=== PATIENT | female | born 1965 | race Native Hawaiian/Other Pacific Islander ===

== ENCOUNTER → 2016-09-11 | Outpatient (CLI) | payer BC ==
[~2016-09-11] MED LIST: AMLO5TAB2 PO; HCT25T PO
--- NOTE | 2016-09-11 13:31 | Diagnostic Imaging Report ---
PROCEDURE: CT head without contrast. TECHNIQUE: Multiple contiguous axial images were obtained through the brain without the use of intravenous contrast. INDICATION: Cephalgia. Headache. FINDINGS: There is no intracranial hemorrhage, edema or mass effect. Olivares-white matter differentiation is preserved. There is no hydrocephalus. No extra-axial fluid collection is seen. There is a nonspecific hypodensity measuring 7 mm seen in the left basal ganglia which could be related to an age-indeterminate lacunar infarct or incidental finding of Virchow-Jens space. The calvarium and visualized portions of the paranasal sinuses and orbits appear unremarkable. IMPRESSION: A 7 mm hypodensity in the left basal ganglia could relate to a lacunar infarct or prominent perivascular Virchow-Jens space. Dictated by: Dictated on workstation # [id number]
--- NOTE | 2016-09-11 14:19 | Diagnostic Imaging Report ---
PROCEDURE: CT chest without contrast. TECHNIQUE: Multiple contiguous axial images were obtained through the chest without the use of intravenous contrast. INDICATION: Followup of anterior mediastinal mass. COMPARISON: 12/29/2013. FINDINGS: The anterior mediastinal mass is again identified. This again measures approximately 19 x 18 mm. No new masses have developed. No mediastinal or hilar adenopathy is demonstrated. The lungs are well aerated and free of infiltrates or mass. No pleural effusions or pericardial effusions. There are noted gallstones within the gallbladder. IMPRESSION: 1. Stable anterior mediastinal mass measuring just under 2 cm. No new lesions have developed. 2. Cholelithiasis. Dictated by: Dictated on workstation # [id number]
--- NOTE | 2016-09-12 08:56 | Diagnostic Imaging Report ---
Bilateral screening mammogram The current study was also evaluated with a Computer Aided Detection (CAD) system. Indication: Screening. No current complaints stated on the questionnaire. COMPARISON: None available. The patient reportedly had a mammogram performed 5 years ago in [place], but the patient does not remember where. FINDINGS: The breasts are composed of scattered fibroglandular densities. There are occasional benign-appearing calcifications. Allowing for technique and positional differences, no suspicious change is seen. IMPRESSION: No significant change. ACR BI-RADS Category 2: Benign findings. Result letter will be mailed to the patient. Note: At least 10% of breast cancer is not imaged by mammography. Dictated by: Dictated on workstation # [id number]
== END ==
LOC: RAD 12:19
PROVIDERS: ATTEND Family Medicine
DX: Z12.31 Encounter for screening mammogram for malignant neoplasm of breast (principal); J98.59 Other diseases of mediastinum, not elsewhere classified; K80.20 Calculus of gallbladder without cholecystitis without obstruction; R93.0 Abnormal findings on diagnostic imaging of skull and head, not elsewhere classified; R51 Headache
CPT/HCPCS: 70450; 71250; 77067

== ENCOUNTER → 2016-09-17 | Outpatient (CLI) | payer BC ==
--- NOTE | 2016-09-17 10:00 | Diagnostic Imaging Report ---
Clinical indication: Patient with severe headache. Comparison: Ultrasound of the carotid arteries dated 10/08/2012. Exam: Real-time carotid Doppler duplex imaging is performed bilaterally. Peak systolic velocity, ICA/CCA peak systolic ratio, spectral analysis, and vascular morphology are studied. Findings: ARTERY VELOCITY Right Left CCA 0.52 m/s 0.73 m/s ICA 0.65 m/s 0.69 m/s ECA 0.54 m/s 0.50 m/s ICA/CCA 1.3 0.9 VERT.ART Antegrade Antegrade There is minimal atherosclerotic plaque seen bilaterally. Impression: Minimal bilateral carotid artery atherosclerotic disease with no grayscale or Doppler evidence of significant vascular stenosis. Dictated by: Dictated on workstation # [id number]
== END ==
LOC: RAD 09:06
PROVIDERS: ATTEND Family Medicine
DX: R51 Headache (principal); Z86.73 Personal history of transient ischemic attack (TIA), and cerebral infarction without residual deficits
CPT/HCPCS: 93880

== ENCOUNTER → 2016-10-26 | Outpatient (CLI) | payer BC ==
[~2016-10-26] MED LIST changes: +PANT40TA2 PO
== END ==
LOC: PREOP 05:33
PROVIDERS: ATTEND Surgery
DX: Z01.818 Encounter for other preprocedural examination (principal); Z12.11 Encounter for screening for malignant neoplasm of colon; R10.13 Epigastric pain; K21.9 Gastro-esophageal reflux disease without esophagitis

== ENCOUNTER 2016-10-29 11:19 | Day surgery (SDC) | payer BC ==
[~2016-10-29] VITALS: Ht 162.6 cm; Wt 84.4 kg
[~2016-10-29 11:19] MED LIST changes: -PANT40TA2 PO
[2016-10-29] MEDS ORDERED: NS IV 500 ML 500 ML IV PRN (11:30)
[2016-10-29] MEDS ORDERED: NS IV 500 ML 500 ML ONE (11:32)
[2016-10-29 11:40] VITALS: BP 148/93
[2016-10-29] MEDS ORDERED: HURRICAINE EXT TUBE (BENZOCAINE) XX ONE ×2 (12:00→15:00)
[2016-10-29] MEDS ORDERED: MIDAZOLAM 2 MG/2 ML (VERSED) VIAL ONE ×4 (13:12→13:13)
[2016-10-29] MEDS ORDERED: fentaNYL INJECTION 100 MCG/2 ML AMP ONE ×2 (13:12)
[2016-10-29] MEDS ORDERED: HURRICAINE EXT TUBE (BENZOCAINE) ONE (13:13)
[2016-10-29] MEDS: fentaNYL INJECTION 100 MCG/2 ML AMP IVP PRN ×2 (13:25→13:27)
[2016-10-29] MEDS: MIDAZOLAM 2 MG/2 ML (VERSED) VIAL IVP PRN ×2 (13:26→13:30)
--- NOTE | 2016-10-29 13:27 | History & Physicial ---
History of Present Illness History of Present Illness Reason for visit/HPI to undergo an upper endoscopy regarding symptoms of reflux disease and for screening colonoscopy concomitantly. Date of Admission Date Seen by Provider: Oct 29, 2016 Time Seen by Provider: 13:26 I consulted on this patient on 10/29/16 13:22 Attending Physician Dany Simon MD Admitting Physician Mitra Ralph DO Consult Allergies and Home Medications Allergies Coded Allergies: No Known Drug Allergies (Unverified , 11/19/12) Home Medications Amlodipine Besylate 5 Mg Tablet, 5 MG PO DAILY, (Reported) Hydrochlorothiazide 25 Mg Tab, 25 MG PO DAILY, (Reported) Past Imladjd-Hyluce-Hbgbmk Hx Patient Social History Marrital Status: Employed/Student: student, full-time Alcohol Use: Denies Use Recreational Drug Use: No Smoking Status: Never a Smoker Recent Foreign Travel: No Contact w/other who traveled: No Recent Hopitalizations: No Recent Infectious Disease Expo: No Seasonal Allergies Seasonal Allergies: No Surgeries HX Surgeries: No Respiratory Hx Respiratory Disorders: No Cardiovascular Hx Cardiovascular Disorders: Yes Cardiac Disorders: Hypertension Neurological Hx Neurological Disorders: No Reproductive System Hx Reproductive Disorders: No Genitourinary Hx Genitourinary Disorders: No Gastrointestinal Hx Gastrointestinal Disorders: No Musculoskeletal Hx Musculoskeletal Disorders: No Endocrine Hx Endocrine Disorders: No HEENT HX ENT Disorders: No Cancer Hx Cancer: No Psychosocial Hx Psychiatric Problems: No Integumentary HX Skin/Integumentary Disorder: No Blood Transfusions Hx Blood Disorders: No Constitutional: no symptoms reported EENTM: no symptoms reported Respiratory: no symptoms reported Cardiovascular: no symptoms reported Gastrointestinal: abdominal pain (RLQ) Genitourinary: no symptoms reported Musculoskeletal: no symptoms reported Skin: no symptoms reported Psychiatric/Neurological: No Symptoms Reported Physical Exam Vital Signs Vital Sign - Last 12Hours 10/29/16 11:40 Temp 97.3 Pulse 58 Resp 18 B/P (MAP) 148/93 Capillary Refill : General Appearance: No Apparent Distress, Anxious HEENT: Normal ENT Inspection Neck: Normal Inspection Respiratory: Lungs Clear Cardiovascular: Regular Rate, Rhythm Gastrointestinal: Non Tender Rectal: Deferred Extremity: Normal Inspection Neurologic/Psychiatric: Alert, Oriented x3 Skin: Warm/Dry Assessment/Plan Assessment and Plan symptoms of gastroesophageal reflux. For screening colonoscopy and upper endoscopy. Problems: DANY SIMON MD Oct 29, 2016 1:27 pm
--- NOTE | 2016-10-29 13:29 | Conscious Sedation/ASA ---
Conscious Sedation Pre-Proced Time Reviewed: 13:01 ASA Class: 2 Airway Mallampati Classification: (tribal appropriate class) I. II. III, IV Lungs Heart ASA score ASA 1: a normal healthy patient ASA 2: a patient with a mild systemic disease (mid diabetes, controlled hypertension, obesity ASA 3: a patient with a severe systemic disease that limits activity (angina , COPD, prior Myocardial infarction) ASA 4: a patient with an incapacitating disease that is a constant threat to life (CHF, renal failure) ASA 5: a moribund patient not expected to survive 24 hrs. (ruptured aneurysm) ASA 6: a declared brain patient whose organs are being harvested. For emergent operations, add the letter E after the classification Grade 1 Sedation Plan: Discussed options with patient/fam Note The patient is an appropriate candidate to undergo the planned procedure, sedation, and anesthesia. The patient immediately re-assessed prior to indication. DANY DANIELS MD Oct 29, 2016 1:29 pm
--- NOTE | 2016-10-29 13:51 | Endo Procedure Record ---
Endo Procedure Report Date of Procedure Oct 29, 2016 Surgeon (s) DANY DANIELS MD Post Procedure/Op Diagnosis EGD: Grade 2 esophagitis. Multiple, shallow duodenal ulcers. Distal gastritis Normal colonoscopy Procedure Performed EGD with antral biopsy Colonoscopy to cecum Description of Procedure Anesthesia Type: Conscious Sedation Specimen(s) collected/removed antral mucosa Description of the Procedure Indication for procedures: This lady came in for an upper endoscopy to evaluate right-sided abdominal pain, along with symptoms of reflux disease and for concomitant screening colonoscopy. She denied any family history of colon polyps or colon cancer. Informed consent was obtained after reviewing the procedure in detail. Description of the procedures: EGD:she was placed in left lateral decubitus position and her vital signs were monitored. Conscious sedation was achieved using Versed and fentanyl. The flexible gastroscope was introduced down the esophagus, past the stomach, into the proximal duodenum. Findings: Esophagus: Grade 2 esophagitis Stomach: Distal gastritis Duodenum: A total of 3 shallow ulcers were found along the first part. An antral biopsy was obtained for Helicobacter status. She tolerated the procedure well and was turned around in preparation for screening colonoscopy. Impression: Epigastric and right-sided abdominal pain with GERD. Esophagitis and duodenal ulcers. Helicobacter status pending. Colonoscopy: Digital rectal examination was unremarkable. The colonoscope was then introduced into the rectum and advanced all the way up to the cecum. The scope was then withdrawn slowly and the mucosa examined in a systematic fashion. There was no abnormality. She tolerated the procedures well and was taken back to the nursing area in a stable condition. Impression: Normal screening colonoscopy. No family history. Recommend repeating in 10 years. Copies To: LISE BARTON XAVIER M MD Oct 29, 2016 1:50 pm
[2016-10-29] MEDS ORDERED: PANT40TA2 PO (13:52)
--- NOTE | 2016-10-29 13:54 | Discharge Inst-Simple/Standard ---
Discharge Inst-Standard Discharge Medications New, Converted or Re-Newed RX: RX on Chart Patient Instructions/Follow Up Plan of Care/Instructions/FU: follow-up with Dr. Ralph in 2 weeks. To avoid nonsteroidals Activity as Tolerated: Yes Discharge Diet: No Restrictions DANY DANIELS MD Oct 29, 2016 1:54 pm
[2016-10-29 14:10] VITALS: BP 157/96
[2016-10-29 14:40] VITALS: BP 133/77
[2016-10-29 15:10] VITALS: BP 133/77
== END 2016-10-29 15:10 | disposition home or self-care (01) ==
LOC: ENDO 11:19
PROVIDERS: ATTEND Surgery
DX: Z12.11 Encounter for screening for malignant neoplasm of colon (principal); K21.0 Gastro-esophageal reflux disease with esophagitis; K29.60 Other gastritis without bleeding; K26.9 Duodenal ulcer, unspecified as acute or chronic, without hemorrhage or perforation; I10 Essential (primary) hypertension
CPT/HCPCS: 84703

== ENCOUNTER → 2016-11-05 | Outpatient (CLI) | payer BC ==
[~2016-11-05] MED LIST changes: +PANT40TA2 PO
--- NOTE | 2016-11-05 08:35 | Diagnostic Imaging Report ---
PROCEDURE: US Gallbladder. TECHNIQUE: Multiple real-time grayscale images were obtained over the right upper quadrant in various projections. INDICATION: CHF I50.1, right upper quadrant pain COMPARISON STUDY: CT chest from 2013. FINDINGS: Examination demonstrates stones and sludge in the gallbladder. There is a 7 mm area which did not move. Possible polyp. This could be an adherent stone. A mass is also a possibility. This is just above the neck of the gallbladder. The gallbladder wall is of normal thickness measuring 2 mm. Common bile duct is normal caliber measuring 3.2 mm. The pancreas and liver appear normal. The right kidney is of normal size, shape, texture and echogenicity. A 1.3 cm lesion is seen within the urinary bladder which did not move. This is soft tissue. Findings are worrisome for carcinoma. Recommend cystoscopy. IMPRESSION: 1. Cholelithiasis with probable 7 mm polyp near the neck of the gallbladder. Consider surgical consult. 2. A 1.3 cm mass in the urinary bladder; recommend cystoscopy. Dictated by: Dictated on workstation # [id number]
== END ==
LOC: RAD 06:46
PROVIDERS: ATTEND Surgery
DX: K80.20 Calculus of gallbladder without cholecystitis without obstruction (principal); N32.89 Other specified disorders of bladder
CPT/HCPCS: 76705

== ENCOUNTER 2016-11-09 15:09 | Outpatient (CLI) | payer BC ==
[~2016-11-09] VITALS: Ht 162.6 cm; Wt 84.4 kg
[2016-11-09] MEDS ORDERED: NFNEB10T PO (15:11)
== END 2016-11-09 15:22 ==
LOC: PREOP 15:09
PROVIDERS: ATTEND Urology
DX: Z01.818 Encounter for other preprocedural examination (principal); N32.89 Other specified disorders of bladder

== ENCOUNTER 2016-11-13 07:11 | Day surgery (SDC) | payer BC ==
[~2016-11-13] VITALS: Ht 162.6 cm; Wt 84.4 kg
[~2016-11-13 07:11] MED LIST changes: +NFNEB10T PO
[2016-11-13 07:14] VITALS: BP 156/86
--- NOTE | 2016-11-13 07:15 | Progress Note-Pre Operative ---
Pre-Operative Progress Note H&P Reviewed The H&P was reviewed, patient examined and no changes noted. Date Seen by Provider: Nov 13, 2016 Time Seen by Provider: 07:15 Date H&P Reviewed: Nov 13, 2016 Time H&P Reviewed: 07:15 Pre-Operative Diagnosis: BLADDER TUMOR (MEDIUM) PEPE CHÁVEZ MD Nov 13, 2016 7:15 am
--- NOTE | 2016-11-13 07:16 | Progress Note-Post Operative ---
Post-Operative Progess Note Surgeon (s)/Delivery Nurse (s) Surgeon PEPE CHÁVEZ MD Delivery Nurse: N/A Pre-Operative Diagnosis BLADDER TUMOR (MEDIUM) Post-Operative Diagnosis SAME Procedure & Operative Findings Date of Procedure 11/13/16 Procedure Performed/Findings TURBT Anesthesia Type GENERAL Estimated Blood Loss Estimated blood loss (mL): NEGLIGIBLE Specimens/Packing Specimens Removed BLADDER TUMOR CHIPS AND BASE Packing: N/A PEPE CHÁVEZ MD Nov 13, 2016 7:16 am
--- NOTE | 2016-11-13 07:17 | Discharge Inst-Urology ---
Discharge Inst-Urology Discharge Medications New, Converted, or Re-newed RX: RX on Chart Patient Instructions/Follow Up Plan Please make appointment to been seen in office in 2 weeks. Increase oral fluids for 48 hours and then as needed. Diet and Activity as tolerated. If questions or concerns contact your physician Or seek help at emergency department. PEPE CHÁVEZ MD Nov 13, 2016 7:17 am
[2016-11-13] MEDS ORDERED: cefTRIAXone 1 GM/NS 50 ML IVPB IV ONE ×2 (07:30)
[2016-11-13] MEDS ORDERED: fentaNYL INJECTION 100 MCG/2 ML AMP ONE (07:57)
[2016-11-13] MEDS ORDERED: proPOfol 200 MG/20 ML (DIPRIVAN) VIAL IV ONE (07:57)
[2016-11-13] MEDS ORDERED: ROCURONIUM 50 MG/5 ML (ZEMURON) VIAL IV ONE (07:57)
[2016-11-13] MEDS ORDERED: MIDAZOLAM 2 MG/2 ML (VERSED) VIAL IV ONE (08:00)
[2016-11-13] MEDS: LACTATED RINGERS 1,000 ML IV PRN ×2 (08:02→08:54)
[2016-11-13] MEDS ORDERED: LACTATED RINGERS 2,000 ML IV ONE (08:43)
[2016-11-13] MEDS ORDERED: SEVOFLURANE (ULTANE) 15 ML INHAL SOLN ONE (08:43)
[2016-11-13] MEDS ORDERED: GLYCOPYRROLATE 0.2 MG/ML (ROBINUL) 2 ML VIAL ONE (08:43)
[2016-11-13] MEDS ORDERED: ONDANSETRON 4 MG/2 ML (SDV) Z0FRAN ONE (08:43)
[2016-11-13] MEDS ORDERED: NEOSTIGMINE (BLOXIVERZ ) 1 MG/1ML 10 ML VIAL ONE (08:43)
[2016-11-13] MEDS ORDERED: morphine INJ 10 MG/ML 1ML (SYR OR VIAL) IVP PRN (09:00)
[2016-11-13] MEDS ORDERED: ONDANSETRON 4 MG/2 ML (SDV) Z0FRAN IVP PRN (09:00)
[2016-11-13 09:45] VITALS: BP 130/79
[2016-11-13 10:15] VITALS: BP 133/77
[2016-11-13] MEDS ORDERED: NITR-65 PO (10:22)
[2016-11-13] MEDS ORDERED: PHEN-640 PO (10:23)
--- OUTSIDE RECORDS SUMMARY | 2016-11-13 10:24 | XMS REPORT ---
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 Active Medications Medication Code System Code Instructions Start Date End Date Status Dosage Diovan [facility] [address]-69 160 MG Orally Once a day 1 tablet Hydrochlorothiazide [facility] [address]-23 25 MG Orally Once a day Feb 11, 2015 1 tablet Procedures Procedure Coding System Code Date Office Visit, Est Pt., Level 3 CPT-4 85103 Feb 11, 2015 Vital Signs Date/Time: Feb 11, 2015 Temperature 98.1 F Weight 178.4 lbs Height 64 in BMI 30.62 Index Blood Pressure Diastolic 86 mmHg Blood Pressure Systolic 150 mmHg Cardiac Monitoring Heart Rate 70 bpm Results No Known Results Summary Purpose eClinicalWorks Submission
--- OUTSIDE RECORDS SUMMARY | 2016-11-13 10:24 | XMS REPORT ---
Author BRETT Arnett [facility] eClinicalWorks Address Unknown Phone Unavailable Care Team Providers Care Recreational Sports Director Name Role Phone BRETT DURAND Unavailable Allergies No Known Allergies Problems Problem Type Condition Code Onset Dates Condition Status Problem Thymus cancer C37 Active Problem Essential hypertension I10 Active Medications Medication Code System Code Instructions Start Date End Date Status Dosage Metoprolol Tartrate [facility] [address]-84 50 MG Orally Twice a day Mar 22, 2015 1 tablet Results No Known Results Summary Purpose eClinicalWorks Submission
--- OUTSIDE RECORDS SUMMARY | 2016-11-13 10:24 | XMS REPORT ---
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 Assessment Encounter for dental examination Z01.20 Active Problem Essential hypertension, benign 401.1 Active Medications Medication Code System Code Instructions Start Date End Date Status Dosage Chlorthalidone [facility] [address]-03 25 MG Orally Once a day Dec 03, 2014 1 tablet in the morning Diovan [facility] [address]-41 160 MG Orally Once a day 1 tablet Procedures Procedure Coding System Code Date Periodontal maint procedures CPT-4 D4910 Jan 17, 2015 Vital Signs Date/Time: Jan 17, 2015 Blood Pressure Diastolic 93 mmHg Blood Pressure Systolic 144 mmHg Results No Known Results Summary Purpose eClinicalWorks Submission
--- OUTSIDE RECORDS SUMMARY | 2016-11-13 10:24 | XMS REPORT ---
Author EMILY Copeland Organization eClinicalWorks Address Unknown Phone Unavailable Care Team Providers Care Cost Estimating Engineer Name Role Phone EMILY CASTAÑEDA CP Unavailable Allergies, Adverse Reactions, Alerts Substance Reaction Event Type Norvasc gum swelling Drug Allergy Metoprolol Tartrate tooth/gum pain Drug Allergy Lisinopril cough Drug Allergy Problems Problem Type Condition Code Onset Dates Condition Status Problem Heart murmur, systolic I38 Active Problem Essential hypertension I10 Active Problem Encounter for dental examination Z01.20 Active Problem Thymus cancer C37 Active Assessment Dental examination Z01.20 Active Medications Medication Code System Code Instructions Start Date End Date Status Dosage Multi Complete [facility] [address] Orally not defined Procedures Procedure Coding System Code Date AMALGAM-TWO SURFACES PRIMARY/PERM CPT-4 D2150 September 21, 2015 Vital Signs Date/Time: September 21, 2015 Blood Pressure Diastolic 85 mmHg Blood Pressure Systolic 145 mmHg Results No Known Results Summary Purpose eClinicalWorks Submission
--- OUTSIDE RECORDS SUMMARY | 2016-11-13 10:24 | XMS REPORT ---
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
--- OUTSIDE RECORDS SUMMARY | 2016-11-13 10:24 | XMS REPORT ---
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
--- OUTSIDE RECORDS SUMMARY | 2016-11-13 10:24 | XMS REPORT ---
Author BAIRON Brooks [facility] eClinicalWorks Address Unknown Phone Unavailable Care Team Providers Care Dynamic Etching Processor Name Role Phone BAIRON ZAVALA CP Unavailable Allergies No Known Allergies Problems Problem Type Condition Code Onset Dates Condition Status Problem Heart murmur, systolic I38 Active Problem Essential hypertension I10 Active Problem Encounter for dental examination Z01.20 Active Problem Thymus cancer C37 Active Assessment Visit for TB skin test Z11.1 Active Medications No Known Medications Procedures Procedure Coding System Code Date TB INTRADERMAL TEST CPT-4 50580 Oct 25, 2015 Results No Known Results Summary Purpose eClinicalWorks Submission
--- OUTSIDE RECORDS SUMMARY | 2016-11-13 10:24 | XMS REPORT ---
Author SEGUNDO Molina Organization eClinicalWorks Address Unknown Phone Unavailable Care Team Providers Care Parts Identifier Name Role Phone SEGUNDO AMANDA CP Unavailable Allergies, Adverse Reactions, Alerts Substance Reaction Event Type Norvasc gum swelling Drug Allergy Metoprolol Tartrate tooth/gum pain Drug Allergy Lisinopril cough Drug Allergy Problems Problem Type Condition Code Onset Dates Condition Status Assessment Insomnia, unspecified type G47.00 Active Problem Heart murmur, systolic I38 Active Problem Essential hypertension I10 Active Problem Encounter for dental examination Z01.20 Active Assessment Cardiac murmur R01.1 Active Assessment Anxiety F41.9 Active Problem Thymus cancer 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 Active Assessment Essential hypertension I10 Active Medications Medication Code System Code Instructions Start Date End Date Status Dosage Hydrochlorothiazide [facility] [address]-95 25 MG Orally Once a day 1 tablet Diovan [facility] [address]-02 160 MG Orally Once a day August 12, 2015 1 tablet Multi Complete [facility] [address] Orally not defined Procedures Procedure Coding System Code Date Office Visit, Est Pt., Level 4 CPT-4 46121 September 30, 2015 Vital Signs Date/Time: September 30, 2015 Cardiac Monitoring Heart Rate 72 bpm Weight 177 lbs Height 64 in Blood Pressure Diastolic 80 mmHg Blood Pressure Systolic 142 mmHg Results No Known Results Summary Purpose eClinicalWorks Submission
--- OUTSIDE RECORDS SUMMARY | 2016-11-13 10:24 | XMS REPORT ---
Author Author BRETT DURAND [facility] Address [address] [place] [address] Care Team Providers Care Prospect Manager Name Role Phone BRETT DURAND Unavailable PROBLEMS Type Condition ICD9-CM Code HEQ80-GY Code Onset Dates Condition Status SNOMED Code Problem Thymus cancer C37 Active 041364104 Problem H. pylori infection A04.8 Active 664506897 Problem Insomnia, unspecified type G47.00 Active 817844325 Problem Heart murmur, systolic I38 Active 71843717 Problem Essential hypertension I10 Active 06375693 Problem Anxiety F41.9 Active 56622802 Problem Encounter for dental examination Z01.20 Active 486077242 ALLERGIES No Known Allergies SOCIAL HISTORY No smoking Hx information available PLAN OF CARE VITAL SIGNS MEDICATIONS Medication Instructions Dosage Frequency Start Date End Date Duration Status Hydrochlorothiazide 25 MG Orally Once a day 1 tablet 24h 30 days Active RESULTS No Results PROCEDURES No Known procedures IMMUNIZATIONS No Known Immunizations
--- OUTSIDE RECORDS SUMMARY | 2016-11-13 10:24 | XMS REPORT ---
Author BRETT Arnett [facility] eClinicalWorks Address Unknown Phone Unavailable Care Team Providers Care Repairer Sash And Door Name Role Phone BRETT DURAND CP Unavailable Allergies No Known Allergies Problems Problem Type Condition Code Onset Dates Condition Status Problem Thymus cancer C37 Active Assessment Essential hypertension I10 Active Problem Essential hypertension I10 Active Assessment Thymus cancer C37 Active Medications No Known Medications Procedures Procedure Coding System Code Date LIPID PANEL CPT-4 99308 Feb 15, 2015 COMPREHEN METABOLIC PANEL CPT-4 86295 Feb 15, 2015 COMPLETE CBC W/AUTO DIFF WBC CPT-4 71658 Feb 15, 2015 VENIPUNCT, ROUTINE* CPT-4 96736 Feb 15, 2015 Results Name Result Date Reference Range Unit Abnormality Flag ROUTINE VENIPUNCTURE Summary Purpose eClinicalWorks Submission
--- OUTSIDE RECORDS SUMMARY | 2016-11-13 10:24 | XMS REPORT ---
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
[2016-11-13 10:45] VITALS: BP 129/79
[2016-11-13 12:00] VITALS: BP 121/73
[2016-11-13 12:24] VITALS: BP 121/73
--- NOTE | 2016-11-13 15:47 | OPERATIVE REPORT ---
DATE OF SERVICE: 11/13/2016 PREOPERATIVE DIAGNOSIS: Medium bladder tumor. POSTOPERATIVE DIAGNOSIS: Medium bladder tumor. OPERATION PERFORMED: Transurethral resection of bladder tumor. SURGEON: Olga Ortiz MD. ANESTHESIA: General COMPLICATIONS: None. PROCEDURE: Under satisfactory general anesthesia, the patient in the lithotomy position, genitalia were prepped and draped in the usual sterile fashion. This stage scope was introduced in the bladder, again visualized the polypoid medium sized bladder tumor sitting at the left side of the bladder, close to the bladder neck. It was completely excised and a bladder base excised as well and sent to pathology separately. Bleeders were cauterized and hemostasis was complete. There was no further bladder tumor. There was a record of patient's clear refluxes. Bladder was emptied and the resectoscope was removed. The patient tolerated the procedure and anesthesia well and sent to the recovery room in stable condition. Estimated blood loss negligible. Job ID: [id number] DocumentID: [id number] Dictated Date: 11/13/2016 08:56:58 Designer Date: 11/13/2016 11:51:11 Dictated By: PEPE CHÁVEZ MD
== END 2016-11-13 12:24 | disposition home or self-care (01) ==
LOC: SDC 07:11
PROVIDERS: ATTEND Urology
DX: N30.80 Other cystitis without hematuria (principal); I10 Essential (primary) hypertension; Z79.899 Other long term (current) drug therapy
CPT/HCPCS: 84703; 87081; 88305; 88307